=== PATIENT | female | born 2000 | race Caucasian/White ===

== ENCOUNTER 2018-06-09 16:07 | Emergency (ER) | payer OTHER ==
[~2018-06-09] VITALS: Ht 177.8 cm; Wt 72.6 kg
[2018-06-09 16:18] VITALS: BP 121/72
[2018-06-09 17:50] VITALS: BP 121/72
== END 2018-06-09 17:49 | disposition home or self-care (01) ==
LOC: MED 16:07
DX: S96.912A Strain of unspecified muscle and tendon at ankle and foot level, left foot, initial encounter (principal); X58.XXXA Exposure to other specified factors, initial encounter; Y93.89 Activity, other specified; Y92.89 Other specified places as the place of occurrence of the external cause; Y99.8 Other external cause status
CPT/HCPCS: 73610; 99284; Q0092